=== PATIENT | female | born 1955 | race Caucasian/White ===

== ENCOUNTER 2021-09-30 01:02 | Day surgery (SDC) | payer OTHER, SELFPAY ==
[2021-09-20 09:45] VITALS: BMI 30.1
--- NOTE | 2021-09-29 16:32 | PM.HPGS ---
History of Present Illness History of Present Illness Consent: Risks, benefits, and alternatives have been discussed and questions answered. Patient agrees to proceed with procedure. Chief complaint: hx of colon polyps Narrative: Kathi Solo is a 66 year old female referred for colon cancer screening. She has a history of polyps Review of Systems Review of Systems: All systems reviewed & are unremarkable except as noted in HPI and below PMFSH Past Medical History Medical History Atrial fibrillation HTN (hypertension) Hypercholesterolemia Obesity Social History Social History Smoking status: Never smoker Alcohol intake: current Drinks per week: 7 Alcohol use details: 1 glass of wine daily Substance use: never Substance use type: does not use Living arrangements: with family Spiritual care concerns: No Meds Home Medications and Allergies Home Medications Medication Instructions Recorded Confirmed Type Eliquis 5 mg PO BID 09/20/21 09/20/21 History atorvastatin 40 mg PO DAILY 09/20/21 09/20/21 History isosorbide mononitrate 30 mg PO DAILY 09/20/21 09/20/21 History metoprolol succinate 100 mg PO HS 09/20/21 09/20/21 History pantoprazole 40 mg PO PRN PRN 09/20/21 09/20/21 History Allergies Allergy/AdvReac Type Severity Reaction Status Date / Time No Known Drug Allergies Allergy Unknown Unknown Verified 09/30/21 10:18 Exam Resp: Auscultation: clear to auscultation bilaterally Cardio: Rate: regular rate Rhythm: regular rhythm GI: GI Palp: Yes Soft to palpation and No Tenderness to palpation present (GI) Assessment and Plan Assessment and plan (1) Colon cancer screening: Code(s): Z12.11 - Encounter for screening for malignant neoplasm of colon Status: Acute Assessment and Plan: Colonoscopy with possible biopsy or polypectomy or cautery or injection of substances.
--- NOTE | 2021-09-30 08:34 | P.PNAN_ITS ---
Anes - Initial Pre Proc Eval Procedure: Operation Date: 09/30/21 11:30 Proposed Procedures p Screening Colonoscopy - Saúl Navarro MD Date/Time: 09/30/21 08:34 Surgeon: Saúl Navarro MD Pre Op Diagnosis: hx of colon polyps Patient Data Age: 66 Gender: F Height: 1.6 m Weight: 77.2 kg Allergies Allergy/AdvReac Type Severity Reaction Status Date / Time No Known Drug Allergies Allergy Unknown Unknown Verified 09/30/21 10:18 Home Medications Medication Instructions Recorded Confirmed Type apixaban [Eliquis] 5 mg PO BID 09/20/21 09/20/21 History atorvastatin 40 mg PO DAILY 09/20/21 09/20/21 History isosorbide mononitrate 30 mg PO DAILY 09/20/21 09/20/21 History metoprolol succinate 100 mg PO HS 09/20/21 09/20/21 History pantoprazole 40 mg PO PRN PRN 09/20/21 09/20/21 History Patient hx anesthesia problems: none Family hx anesthesia problems: none Results Review: All pre-operative results and documents have been reviewed as part of the pre-operative evaluation. [facility] Past Medical History Medical History (Updated 09/30/21 @ 08:36 by Jourdan Olsen MD) Atrial fibrillation HTN (hypertension) Hypercholesterolemia Obesity Social History Social History Smoking status: Never smoker Alcohol intake: current Drinks per week: 7 Alcohol use details: 1 glass of wine daily Substance use: never Substance use type: does not use Living arrangements: with family Spiritual care concerns: No Anes - Eval Final PreProcedure Day of Procedure 09/30/21 08:34 Patient weight: overweight Heart: regular rate and rhythm Lungs: clear to auscultation and normal air movement Airway: Mallampati scale class II Neurological: alert and oriented Last oral intake: >/= 8 hours ASA classification: III Emergent: no Anesthetic plan: proceed Anesthesia type and monitoring: general GIVS Results Review: All pre-operative results and documents have been reviewed as part of the pre-operative evaluation. Informed Consent: The patient's anesthetic plan and its attendant risks and benefits were discussed with the patient/family/POA. Questions were solicited and answers provided to the satisfaction of the patient/family/POA.
[2021-09-30 10:20] VITALS: BP 134/75; PULSE 72; RESP 18; TEMP 36.8
[2021-09-30] MEDS: LACTATED RINGERS 1,000 ML 150 ML IV CONT (10:33)
[2021-09-30 11:53] VITALS: BP 112/67; PULSE 68; RESP 70; O2SAT 100
[2021-09-30 12:03] VITALS: BP 110/69; PULSE 67; RESP 24; O2SAT 100
[2021-09-30 12:13] VITALS: BP 132/71; PULSE 65; RESP 19; O2SAT 100
--- NOTE | 2021-10-25 17:23 | WPDSLEEPSTUD ---
Sleep Study Ordering Provider: Súal Navarro MD Interpreting Physician: Lela Bergman MD Sleep Study Type: CPAP Titration Height: 1.6 m Weight: 75.2 kg Body Mass Index: 29.3 [facility] Past Medical History Medical History Atrial fibrillation HTN (hypertension) Hypercholesterolemia Obesity Social History Social History Smoking status: Never smoker Alcohol intake: current Drinks per week: 7 Alcohol use details: 1 glass of wine daily Substance use: never Substance use type: does not use Living arrangements: with family Spiritual care concerns: No Medications Home Medications Medication Instructions Recorded Confirmed Type Eliquis 5 mg PO BID 09/20/21 09/20/21 History atorvastatin 40 mg PO DAILY 09/20/21 09/20/21 History isosorbide mononitrate 30 mg PO DAILY 09/20/21 09/20/21 History metoprolol succinate 100 mg PO HS 09/20/21 09/20/21 History pantoprazole 40 mg PO PRN PRN 09/20/21 09/20/21 History Sleep Procedure This test was performed using the [employer] net multiple channel system including EOG, EEG, submental EMG, EKG, nasal and oral airflow using thermistors and nasal pressure sensors, chest and abdominal belts for body position data, and pulse oximetry. Video monitoring was also performed. The study was scored using [facility] guidelines. The patient was started on CPAP .... EEG Profile EEG was unremarkable, no evidence of seizures. Assessment and Plan Data The data obtained during this sleep study is adequate for interpretation.
== END 2021-09-30 12:23 | disposition home or self-care (01) ==
PROVIDERS: PCP Internal Medicine; Visit Provider Internal Medicine Gastroenterology
PROC: 0DJD8ZZ Inspection of Lower Intestinal Tract, Via Natural or Artificial Opening Endoscopic (ICD-10-PCS; CPT 45378; principal; 2021-09-30 11:30)
DX: Z12.11 Encounter for screening for malignant neoplasm of colon (principal); K57.30 Diverticulosis of large intestine without perforation or abscess without bleeding; K64.8 Other hemorrhoids; Z86.010 Personal history of colon polyps; I48.91 Unspecified atrial fibrillation; I10 Essential (primary) hypertension; Z79.01 Long term (current) use of anticoagulants
CPT/HCPCS: 45378; J2704; J7120

== ENCOUNTER → 2023-07-21 15:34 | Outpatient (CLI) | payer OTHER, SELFPAY ==
--- NOTE | ~2023-07-21 | XR_ITS ---
EXAMINATION: XR chest 2V DATE: 07/21/2023 15:57 INDICATION: Other forms of dyspnea. TECHNIQUE: Frontal and lateral views of the chest were obtained. COMPARISON: None. FINDINGS: There is no pneumonia, pleural effusion, or pneumothorax. The heart size is normal. IMPRESSION: 1. No acute cardiopulmonary disease. Reviewed, dictated and finalized at location E.
== END ==
PROVIDERS: PCP Internal Medicine; Visit Provider Internal Medicine Cardiovascular Disease
DX: R06.09 Other forms of dyspnea (principal)
CPT/HCPCS: 71046

== ENCOUNTER 2023-09-20 00:35 | Day surgery (SDC) | payer OTHER, SELFPAY ==
[2023-09-13 15:04] VITALS: BMI 33.7
--- NOTE | 2023-09-19 10:18 | PM.HPGS ---
History of Present Illness History of Present Illness Consent: Risks, benefits, and alternatives have been discussed and questions answered. Patient agrees to proceed with procedure. Chief complaint: GERD Narrative: Kathi Solo is a 68 year old female with longstanding gastroesophageal reflux symptoms maintained on pantoprazole 40 mg a day. She has had increasing symptoms recently despite therapy. Her last EGD was 10 years ago. A hiatal hernia was apparently found at that time. She gets relief of her heartburn with medication but she has developed a soreness in the upper left side of her chest that is there often throughout the day. She does occasionally regurgitate but only when lying down. She has also developed some hoarseness recently. Review of Systems Review of Systems: All systems reviewed & are unremarkable except as noted in HPI and below PMFSH Past Medical History Medical History Atrial fibrillation HTN (hypertension) Hypercholesterolemia Obesity Social History Social History Smoking status: Never smoker Alcohol intake: current Drinks per week: 10 Alcohol use details: GLASSES WINE Substance use: never Substance use type: does not use Living arrangements: with family Spiritual care concerns: No Meds Home Medications and Allergies Home Medications Medication Instructions Recorded Confirmed Type apixaban 5 mg tablet (Eliquis) 5 mg PO BID 09/20/21 09/20/23 History atorvastatin 40 mg tablet 40 mg PO DAILY 09/20/21 09/20/23 History isosorbide mononitrate 30 mg 30 mg PO HS 09/20/21 09/20/23 History tablet,extended release 24 hr metoprolol succinate 100 mg 100 mg PO HS 09/20/21 09/20/23 History tablet,extended release 24 hr pantoprazole 40 mg tablet,delayed 40 mg PO PRN PRN Heartburn 09/20/21 09/20/23 History release cholecalciferol (vitamin D3) 25 25 mcg PO DAILY 09/13/23 09/20/23 History mcg (1,000 unit) tablet (Vitamin D3) coQ10 (ubiquinol) 100 mg capsule 100 mg PO DAILY 09/13/23 09/20/23 History guaifenesin 400 mg tablet (Mucus 400 mg PO QID PRN Congestion 09/13/23 09/20/23 History Relief) magnesium 250 mg tablet 250 mg PO DAILY 09/13/23 09/20/23 History omega-3 fatty acids-vitamin E 1 cap PO DAILY 09/13/23 09/20/23 History 1,000 mg capsule vitamin B complex 1 cap PO DAILY 09/13/23 09/20/23 History zinc 50 mg capsule 50 mg PO DAILY 09/13/23 09/20/23 History Allergies Allergy/AdvReac Type Severity Reaction Status Date / Time No Known Drug Allergies Allergy Unknown Unknown Verified 09/20/23 07:20 Exam Const: General: alert Orientation/consciousness: patient oriented x3 Resp: Auscultation: clear to auscultation bilaterally Cardio: Rhythm: regular rhythm GI: GI Palp: Yes Soft to palpation and No Tenderness to palpation present (GI) Neuro: General: patient oriented x3 Assessment and Plan Assessment and plan (1) GERD (gastroesophageal reflux disease): Code(s): K21.9 - Gastro-esophageal reflux disease without esophagitis Status: Acute Assessment and Plan: EGD with possible biopsy or dilatation or cautery.
[2023-09-20 07:22] VITALS: BP 132/72; PULSE 71; RESP 16; TEMP 36.1; O2SAT 95
[2023-09-20] MEDS: LACTATED RINGERS 1,000 ML 150 ML IV CONT (07:31)
--- NOTE | 2023-09-20 08:12 | P.PNAN_ITS ---
Anes - Initial Pre Proc Eval Procedure: Operation Date: 09/20/23 08:30 Proposed Procedures p Esophagogastroduodenoscopy - Saúl Navarro MD Date/Time: 09/20/23 08:12 Surgeon: Saúl Navarro MD Pre Op Diagnosis: GERD Patient Data Age: 68 Gender: F Height: 1.6 m Weight: 77 kg Last Vital Signs Temp 96.9 F L 09/20/23 07:22 Pulse 71 09/20/23 07:22 Resp 16 09/20/23 07:22 BP 132/72 09/20/23 07:22 Pulse Ox 95 09/20/23 07:22 O2 Del Method Room Air 09/20/23 07:22 Allergies Allergy/AdvReac Type Severity Reaction Status Date / Time No Known Drug Allergies Allergy Unknown Unknown Verified 09/20/23 07:20 Home Medications Medication Instructions Recorded Confirmed Type apixaban 5 mg tablet (Eliquis) 5 mg PO BID 09/20/21 09/20/23 History atorvastatin 40 mg tablet 40 mg PO DAILY 09/20/21 09/20/23 History isosorbide mononitrate 30 mg 30 mg PO HS 09/20/21 09/20/23 History tablet,extended release 24 hr metoprolol succinate 100 mg 100 mg PO HS 09/20/21 09/20/23 History tablet,extended release 24 hr pantoprazole 40 mg tablet,delayed 40 mg PO PRN PRN Heartburn 09/20/21 09/20/23 History release cholecalciferol (vitamin D3) 25 25 mcg PO DAILY 09/13/23 09/20/23 History mcg (1,000 unit) tablet (Vitamin D3) coQ10 (ubiquinol) 100 mg capsule 100 mg PO DAILY 09/13/23 09/20/23 History guaifenesin 400 mg tablet (Mucus 400 mg PO QID PRN Congestion 09/13/23 09/20/23 History Relief) magnesium 250 mg tablet 250 mg PO DAILY 09/13/23 09/20/23 History omega-3 fatty acids-vitamin E 1 cap PO DAILY 09/13/23 09/20/23 History 1,000 mg capsule vitamin B complex 1 cap PO DAILY 09/13/23 09/20/23 History zinc 50 mg capsule 50 mg PO DAILY 09/13/23 09/20/23 History Patient hx anesthesia problems: none Family hx anesthesia problems: none Results Review: All pre-operative results and documents have been reviewed as part of the pre- operative evaluation. [facility] Past Medical History Medical History Atrial fibrillation HTN (hypertension) Hypercholesterolemia Obesity Social History Social History Smoking status: Never smoker Alcohol intake: current Drinks per week: 10 Alcohol use details: GLASSES WINE Substance use: never Substance use type: does not use Living arrangements: with family Spiritual care concerns: No Anes - Eval Final PreProcedure Day of Procedure 09/20/23 08:12 Patient weight: normal Heart: regular rate and rhythm Lungs: clear to auscultation Neurological: alert and oriented Last oral intake: >/= 8 hours Emergent: no Anesthetic plan: proceed Results Review: All pre-operative results and documents have been reviewed as part of the pre- operative evaluation. Informed Consent: The patient's anesthetic plan and its attendant risks and benefits were discussed with the patient/family/POA. Questions were solicited and answers provided to the satisfaction of the patient/family/POA.
[2023-09-20 08:28] VITALS: BP 114/66; PULSE 65; RESP 16; O2SAT 98
[2023-09-20 08:38] VITALS: BP 119/74; PULSE 67; RESP 16; O2SAT 98
[2023-09-20 08:48] VITALS: BP 119/75; PULSE 63; RESP 15; O2SAT 100
== END 2023-09-20 08:55 | disposition home or self-care (01) ==
PROVIDERS: PCP Internal Medicine; Visit Provider Internal Medicine Gastroenterology
PROC: 0DJ08ZZ Inspection of Upper Intestinal Tract, Via Natural or Artificial Opening Endoscopic (ICD-10-PCS; CPT 43235; principal; 2023-09-20 08:30)
DX: K21.9 Gastro-esophageal reflux disease without esophagitis (principal); K44.9 Diaphragmatic hernia without obstruction or gangrene; I48.91 Unspecified atrial fibrillation; I10 Essential (primary) hypertension; E78.00 Pure hypercholesterolemia, unspecified; E66.9 Obesity, unspecified; Z68.30 Body mass index [BMI] 30.0-30.9, adult; Z79.01 Long term (current) use of anticoagulants
CPT/HCPCS: 43239; 88305; J2001; J2704; J7120

== ENCOUNTER 2023-12-13 09:14 | Outpatient (CLI) | payer OTHER, SELFPAY ==
--- NOTE | 2023-12-14 13:50 | P.PCNPFT_ITS ---
PFT Procedure Performed PFT Procedure Performed Plethysmography (Lung Vol) Diffusing Cap (DLCO) Flow Vol Loop Spirometry w/o Bronchodil PFT Interpretation Lung volumes were measured with the body plethysmography method. Lung volumes are unremarkable. Spirometry showed diminished expiratory flow rates and a d iminished FEV1 to FVC ratio of 49%. No post bronchodilator study carried out. Lung diffusion capacity is mildly reduced at 64% predicted. Flow-volume loop is consistent with obstructive airway disease. Impression: Moderate obstructive airway disease. Mild reduction in lung diffusion capacity.
== END 2023-12-13 09:15 | disposition home or self-care (01) ==
PROVIDERS: PCP Internal Medicine; Visit Provider Internal Medicine Cardiovascular Disease
DX: R06.09 Other forms of dyspnea (principal); R94.2 Abnormal results of pulmonary function studies
CPT/HCPCS: 94375; 94726; 94729

== ENCOUNTER 2024-01-25 09:17 | Outpatient (CLI) | payer OTHER, SELFPAY ==
--- NOTE | 2024-01-25 16:44 | P.PCNPFT_ITS ---
PFT Procedure Performed PFT Procedure Performed Spirometry with Pre/Post Bronchodilator Flow Vol Loop PFT Interpretation This is a pulmonary function test with pre and post-bronchodilator spirometry. The test was performed and results interpreted in accordance with the 2019 and 2005 ATS/ERS Task Force guidelines respectively using the Global Lung Function Initiative-2012 reference equations. Patient demonstrated good effort and cooperation. Reproducibility criteria were met. The quality of the pre bron chodilator spirometry maneuver was Grade A and post bronchodilator spirometry maneuver was Grade A. Of note, patient has not been at her baseline. She had COVID in mid December and then sinus infection and just finished and Augmentin Findings: Spirometry: there is decreased maximal expiratory airflow at all lung volumes with concave expiratory flow tracing. The contour the inspiratory flow tracing is normal. The pre bronchodilator FVC is 2.20 L, 78% predicted. The pre bronchodilator FEV1 is 1.33 L, 61% predicted. The pre bronchodilator FEV1: FVC ratio is 60%. The post bronchodilator FVC is 2.34 L, representing a 6% increase. The post bronchodilator FEV1 is 1.33 L, representing no change. The post bronchodilator FEV1: FVC ratio is 57%. In comparison to previous pulmonary function testing on 12/13/2023 the pre bronchodilator FVC is unchanged from 2.25 L to 2.20 L. The pre bronchodilator FEV1 is increased from 1.10 L to 1.33 L. Impression: There is a moderate obstructive abnormality. There is no significant improvement after inhaling a single dose of albuterol. A concurrent restrictive abnormality cannot be excluded as lung volumes were not measured. In comparison to previous pulmonary function testing on 12/13/2023 there has been a greater than anticipated time dependent increase in the pre bronchodilator FEV1 and no significant change in the pre bronchodilator FVC. Clinical correlation is recommended.
== END 2024-01-25 09:18 | disposition home or self-care (01) ==
PROVIDERS: PCP Internal Medicine; Visit Provider Nurse Practitioner Family
DX: R06.09 Other forms of dyspnea (principal); R94.2 Abnormal results of pulmonary function studies
CPT/HCPCS: 94060

== ENCOUNTER 2024-07-24 08:33 | Outpatient (CLI) | payer MEDICARE, SELFPAY ==
--- NOTE | 2024-08-11 14:46 | WPDSLEEPSTUD ---
Sleep Study Date of Study: 07/24/24 Ordering Provider: Nitish Spain MD Interpreting Physician: Lela Bergman MD Sleep Study Type: Split Polysomnogram Height: 1.6 m Weight: 86.183 kg Body Mass Index: 33.6 Neck Circumference (inches): 15 Grants: 12 Reason for Sleep Study Hypersomnolence Sleep History Kathi Solo is a 59-year-old woman with paroxysmal atrial fibrillation, hypertension, COPD and asthma. She always wakes up feeling tired. She does not awaken from sleep feeling short of breath but she does frequently awaken at night with heartburn, belching, coughing and loud snoring. She frequently has difficulty sleeping which he has a cold. She does not gasp for breath at night. She occasionally sweats excessively loud at night and notices her heart pounding or beating irregularly at night she occasionally falls asleep during the day, occasionally falls asleep involuntarily but never while driving. She does not have loss of muscle tone with strong emotion. She occasionally has daytime difficulties due to excessive sleepiness. She does not feel paralyzed on waking or falling asleep nor does she have vivid dreamlike scenes upon awakening or falling asleep. She does not feel afraid to go to sleep. She does not have nightmares. She rarely remembers her dreams. She occasionally feels sad, depressed or anxious. She rarely notices parts of her body jerking. She rarely kicks at night. She occasionally has crawling and aching feelings in her legs. She rarely has any kind of leg pain at night. She occasionally has morning jaw pain and occasionally grinds her teeth during sleep. She frequently is bothered by pain during the day. She occasionally is awakened by pain at night and occasionally wakes up feeling stiff in the morning she occasionally wakes up with sore achy muscles and pain in the neck and spine. She has memory problems and concentration difficulties. Normal bedtime is between 9 and 10:00 p.m. on weekdays and between 10:00 p.m. and 11:00 p.m. on weekends. She falls asleep within 5 minutes, typically waking once at night to go to the bathroom, and sometimes have some coughing during the night. She is able to return to sleep within 5-10 minutes. Her normal wake time is between 6:00 a.m. and 7:00 a.m. during the week and between 7:00 a.m. and 8:00 a.m. on weekends. She sometimes takes naps in the afternoon or evening. A short nap lasting 10-15 minutes may be refreshing. She is usually drowsy for an hour after waking. She feels better in the afternoon compared to other times of day. Habits: Tobacco: none Caffeine: 3-4 cups per day Alcohol: 2 glasses of wine on average daily Recreational substances: none PMFSH Past Medical History Medical History Atrial fibrillation Gastritis Hiatal hernia HTN (hypertension) Hypercholesterolemia Hyperlipemia Obesity Surgical History Surgical History H/O cardiac catheterization History of cholecystectomy History of hemorrhoidectomy History of tonsillectomy History of total abdominal hysterectomy Previous section x2 Family History Family History Mother Lung cancer Father Myocardial infarction History of heart attack Social History Social History Smoking status: Never smoker Alcohol intake: current Drinks per week: 10 Alcohol use details: GLASSES WINE Substance use: never Substance use type: does not use Living arrangements: with family Spiritual care concerns: No Medications Home Medications Medication Instructions Recorded Confirmed Type apixaban 5 mg tablet (Eliquis) 5 mg PO BID 09/20/21 01/17/24 History atorvastatin 40 mg tablet 40 mg PO DAILY 1
[2024-08-12 17:46] VITALS: BMI 33.6
== END 2024-07-25 07:06 | disposition home or self-care (01) ==
LOC: ANHCSM 08:47
PROVIDERS: PCP Internal Medicine; Visit Provider Internal Medicine Pulmonary Disease
DX: G47.33 Obstructive sleep apnea (adult) (pediatric) (principal); I10 Essential (primary) hypertension; I25.9 Chronic ischemic heart disease, unspecified; Z79.01 Long term (current) use of anticoagulants; Z79.51 Long term (current) use of inhaled steroids; Z79.899 Other long term (current) drug therapy
CPT/HCPCS: 95811

== ENCOUNTER 2025-01-06 00:52 | Day surgery (SDC) | payer MEDICARE, SELFPAY ==
[2024-12-23 08:56] VITALS: BMI 34.0
--- NOTE | 2024-12-30 14:26 | PC.NURSE ---
Spoke with patient regarding medication ELIQUIS. PATIENT verbalizes understanding that the last dose is to be taken on 01/03/2025 and the Endoscopist will instruct them when to restart after the procedure.
--- OUTSIDE RECORDS SUMMARY | 2025-01-06 00:55 | XMS_ITS | Referral Summary ---
Author Organization [facility] [address] [facility] [address] Address [address] [place] [address] Care Team Providers Care Slate Trimmer Name Role Phone Anthony Peng MD Primary Care Provider Encounters Date Type Department Care Team Description 12/18/2024 Orders Only [facility] Cardiology [facility] [facility] [address], [place] [address] Segun Bustillos MD 12/09/2024 8:15 AM TANK TRUCK OPERATOR Office Visit [facility] Cardiology [address] [facility] [address] [place] [address] Segun Bustillos MD Atrial paroxysmal tachycardia (HCC) (Primary Dx); Primary hypertension; Mixed hyperlipidemia; PAF (paroxysmal atrial fibrillation) (CMS/HCC) (HCC); Other chest pain; Palpitations; Atherosclerosis of [place] coronary artery of [place] heart without angina pectoris; Elevated fasting glucose from Last 3 Months Allergies No known active allergies Medications guaiFENesin ER (MUCINEX) 600 mg 12 hr tablet take 1 tablet (600MG) by oral route every 12 hours as needed 0 1 Active nitroglycerin (NITROSTAT) 0.[address] 1 tablet (0.4MG) by sublingual route at the 1st sign of attack; may repeat every 5 min until relief; if pain persists after 3 tablets in 15 min, prompt medical attention is recommended 25 3 1 Active b complex vitamins (VITAMINS B COMPLEX) tablet take 1 tablet by mouth daily 0 0 1 Active omega-3 fatty acids 1,000 mg capsule Take one by mouth one time per day 0 0 9 Active magnesium oxide (MAG-OX) 250 mg (150.8 mg elemental) tabletIndication s:hypomagnesemia 1 tablet (250 mg total) daily Active phenylephrine (SUDAFED PE) 10 mg tabletIndication s:Nasal Congestion Take 1 tablet (10 mg total) by mouth Active cholecalciferol (VITAMIN D-3) 2,000 unit tablet 1 tablet (2,000 Units total) daily Active zinc gluconate 30 mg tablet Take 40 mg by mouth Active atorvastatin (Lipitor) 40 mg tablet Take 1 tablet (40 mg total) by mouth daily 90 tablet 3 4 Active metoprolol XL (TOPROL-XL) 100 mg 24 hr tablet Take 1 tablet (100 mg total) by mouth daily 90 tablet 3 4 Active apixaban (Eliquis) 5 mg tablet Take 1 tablet (5 mg total) by mouth 2 (two) times a day 180 tablet 3 4 Active isosorbide mononitrate ER (IMDUR) 30 mg 24 hr tabletIndication s:Essential (primary) hypertension Take 1 tablet (30 mg total) by mouth daily 90 tablet [address] (Protonix) 40 mg EC tablet Take 1 tablet (40 mg total) by mouth daily 90 tablet 3 4 Active Active Problems Problem Noted Date Diagnosed Date Elevated fasting glucose 12/09/2024 Other thrombophilia 12/04/2023 Other chest pain 11/28/2022 PAF (paroxysmal atrial fibrillation) (CMS/HCC) 0 06/08/2020 Palpitations 09/16/2019 History of abnormal mammogram 10/11/2017 Dyspnea on exertion 09/18/2017 Assessment & Plan (09/17/2018 8:42 AM CDT): Chronic dyspnea on exertion that is unchanged from before. Stress echocardiogram negative in 2015. Patient admits to spurs of dry cough. I advised her to get evaluated by Pulmonary to rule out underlying asthma. Assessment & Plan (09/18/2017 12:50 PM CDT): What she describes sounds chronic and similar to her previous complaints. She had a negative stress test September of 2016. Continue to observe for now. Advised regarding pulmonary evaluation and ear nose throat evaluation as well. BMI 35.0-35.9,adult 09/18/2017 Assessment & Plan (09/18/2017 12:52 PM CDT): Advised about diet modification and regular exercise and keep her weight under control. She admits to me that she eats a lot of unhealthy foods and she will try to change this. Pain in wrist 02/10/2016 Adiposity 02/16/2010 Overview (02/24/2017): obesity Hypertension 02/16/2010 Overview (02/24/2017): hypertension Assessment & Plan (09/17/2018 8:43 AM CDT): Blood pressure is controlled. Continue current treatment Assessment & Plan (09/18/2017 12:51 PM CDT): Blood pressure is controlled. Gastroesophageal reflux disease 02/16/2010 Overview (02/24/2017): esophageal reflux Hyperlipidemia 02/16/2010 Overview (02/24/2017): hyperlipidemia Assessment & Plan (09/17/2018 8:43 AM CDT): Lipid panel control today. Continue statin. Assessment & Plan (09/18/2017 12:51 PM CDT): continue Lipitor. Last lipid panel in May 2017 shows LDL 88, HDL 59 triglyceride 100 Atherosclerosis of coronary artery 02/16/2010 Overview (02/24/2017): coronary artery disease Assessment & Plan (09/17/2018 8:43 AM CDT): 30-50% lad stenosis on catheterization in 2003. No change in symptoms.. Continue aspirin, beta-valente, statin. Stress test - 2015 Assessment & Plan (09/18/2017 12:53 PM CDT): Mild obstructive coronary artery disease in 2004 on catheterization. Continue risk factor modifications for CA D Atrial paroxysmal tachycardia 02/16/2010 Overview (02/24/2017): paroxysmal atrial tachycardia Assessment & Plan (09/17/2018 8:42 AM CDT): In sinus rhythm today. Continue to observe. Continue Toprol. Social History Tobacco Use Types Packs/Day Years Used Date Smoking Tobacco: Never Smokeless Tobacco: Never Tobacco Cessation:Counseling Given: Not Answered Alcohol Use Standard Drinks/Week Comments Yes 0 (1 standard drink = 0.6 oz pur e alcohol) Comments No Sex and Gender Information Value Date Recorded Sex Assigned at Not on file Legal Sex Female 11:56 PM TANK TRUCK OPERATOR Gender Identity Female 10/11/2022 10:09 AM TANK TRUCK OPERATOR Sexual Orientation Straight 10/11/2022 10 :09 AM TANK TRUCK OPERATOR Last Filed Vital Signs Vital Sign Reading Time Taken Comments Blood Pressure 126/72 12/09/2024 8:11 AM TANK TRUCK OPERATOR Pulse 69 12/09/2024 8:11 AM TANK TRUCK OPERATOR Temperature 36.8 C (98.2 F) 07/31/2020 8:12 AM CDT Respiratory Rate 12 09/18/2017 8:21 AM CDT Oxygen Saturation 96% 12/09/2024 8:11 AM TANK TRUCK OPERATOR Inhaled Oxygen Concentration - - Weight 88.3 kg (194 lb 9.6 oz) 12/09/2024 8:11 A M TANK TRUCK OPERATOR Height 161.3 cm (5' 3.5 ) 12/09/2024 8:11 AM TANK TRUCK OPERATOR Body Mass Index 33.93 12/09/2024 8:11 AM TANK TRUCK OPERATOR Plan of Treatment Not on file Procedures Procedure Name Priority Date/Time Associated Diagnosis Comments HEMOGLOBIN A1C Routine 12/18/2024 8:36 AM TANK TRUCK OPERATOR LIPID PANEL Routine 12/18/2024 8:36 AM TANK TRUCK OPERATOR POCT LIPID PANEL Routine 12/09/2024 8:57 AM TANK TRUCK OPERATOR Mixed hyperlipidemia SCREENING MAMMOGRAM BILATERAL W SHASHI Schedule Routine, Read Routine (OP Routine) 05/15/2024 2:10 PM CDT Encounter for screening mammogram for malignant neoplasm of breast DEXA AXIAL SKELETON BONE DENSITY 1 OR MORE SITES Schedule Routine, Read Routine (OP Routine) 05/15/2024 1:52 PM CDT Age-related osteoporosis without current pathological fracture from Last 3 Months or Most Recently Relevant to Health Maintenance Results * (ABNORMAL) Hemoglobin A1c (12/18/2024 8:36 AM TANK TRUCK OPERATOR) Hgb A1C 6.2(H) 4.8 - 5.6 % [facility] - 01 Comment: Prediabetes: 5.7 - 6.4 Diabetes: >6.4 Glycemic control for adults with diabetes: <7.0 12/18/2024 8:36 AM TANK TRUCK OPERATOR 12/18/2024 Narrative [facility] - 12/19/2024 12:06 AM TANK TRUCK OPERATOR Performed at: [address] [place] [id number] Ell Teacher: Omega Fall PhD, Phone: [phone] us Segun Bustillos MD LAB BLOOD ORDERABLES Final Result [facility] - 01 * Lipid panel (12/18/2024 8:36 AM TANK TRUCK OPERATOR) Pathologist [facility] Cholesterol 154 100 - 199 mg/dL [facility] - 01 Triglycerides 64 0 - 149 mg/dL [facility] - 01 HDL Cholesterol 66 >39 mg/dL [facility] - 01 VLDL 13 5 - 40 mg/dL [facility] - 01 LDL, calculated 75 0 - 99 mg/dL [facility] - 01 12/18/2024 8:36 AM TANK TRUCK OPERATOR 12/18/2024 Narrative [facility] - 12/19/2024 2:07 AM TANK TRUCK OPERATOR Performed at: [address] [place] [id number] Ell Teacher: Omega Fall PhD, Phone: [phone] Specimen Comment: A courtesy copy of this report has been sent to [phone], [phone] Specimen Comment: [id number] Segun Bustillos MD LAB BLOOD ORDERABLES Final Result [facility] - 01 * POCT lipid panel (12/09/2024 8:57 AM TANK TRUCK OPERATOR) Cholesterol, POC 163 mg/dL Comment:GLU = 124 HDL, POC N/A mg/dL Triglycerides, POC >650 mg/dL LDL Cholesterol POC N/A mg/dL Chol/HDL Ratio, POC N/A Non-HDL Cholesterol, POC N/A mg/dL Cholesterol Total, POC 163 mg/dL Capillary blood 12/09/2024 8 :57 AM TANK TRUCK OPERATOR Segun Bustillos MD POINT OF CARE TEST O RDERABLES Final Result * Screening Mammogram Bilateral W Shashi (05/15/2024 2:10 PM CDT) Anatomical Region Laterality Modality Breast Bilateral Mammography 05/15/2024 4:45 PM CDT Impressions 05/15/2024 4:45 PM CDT No evidence of malignancy in either breast. FINAL ASSESSMENT: BI-RADS Category 1: Negative. RECOMMENDATION: Recommend return for annual screening mammogram in 12 months. Electronically signed by: Cara Green MD Narrative 05/15/2024 4:45 PM CDT EXAMINATION: BILATERAL SCREENING MAMMOGRAM HISTORY: Annual screening mammography. COMPARISON: Mammography 11/03/2022, 11/03/2021, 10/28/2020 TECHNIQUE: Full-field 2D and digital breast tomosynthesis (DBT) images were obtained. CAD was utilized. BREAST PARENCHYMAL COMPOSITION: There are scattered areas of fibroglandular density. FINDINGS: There is no suspicious mass, calcification, or distortion in either breast. Anthony Peng MD IMG MAMMO PROCEDURES F inal Result * Dexa Axial Skeleton Bone Density 1 or 2 Site (05/15/2024 1:52 PM CDT) Anatomical Region Laterality Modality Body N/A Other 05/15/2024 2:26 PM CDT Impressions 05/15/2024 2:26 PM CDT Osteopenia. Consider follow-up bone densitometry evaluation in 2-3 years. Electronically signed by: Francisco Donovan M.D. Narrative 05/15/2024 2:26 PM CDT EXAMINATION: DEXA AXIAL SKELETON BONE DENSITY 1 OR MORE SITES DATE: 05/15/2024 2:30 PM HISTORY: 68 [id number] postmenopausal woman; age-related osteoporosis without current pathological fracture COMPARISON: None. FINDINGS: The bone densitometry of the L1-L4 region, the left femoral neck and the total hip was calculated using dual-energy x-ray absorptiometry. Bone mineral density (BMD) of the lumbar spine (L1-L4): T-score 0.4 Bone mineral density (BMD) of the femoral neck: T-score 1.8 Bone mineral density (BMD) of the total hip: T-score -1.2 Procedure Note Francisco Donovan MD - 05/15/2024 EXAMINATION: DEXA AXIAL SKELETON BONE DENSITY 1 OR MORE SITES DATE: 05/15/2024 2:30 PM HISTORY: 68 [id number] postmenopausal woman; age-related osteoporosis without current pathological fracture COMPARISON: None. FINDINGS: The bone densitometry of the L1-L4 region, the left femoral neck and the total hip was calculated using dual-energy x-ray absorptiometry. Bone mineral density (BMD) of the lumbar spine (L1-L4): T-score 0.4 Bone mineral density (BMD) of the femoral neck: T-score 1.8 Bone mineral density (BMD) of the total hip: T-score -1.2 IMPRESSION: Osteopenia. Consider follow-up bone densitometry evaluation in 2-3 years. Electronically signed by: Francisco Donovan M.D. us Anthony Peng MD IM DXA PROCEDURES Fin al Result from Last 3 Months or Most Recently Relevant to Health Maintenance Insurance [employer] MEDICARE GOLD MEDICARE FORMERLY [facility] OPEN ACCESS MEDICARE [employer] MEDICARE GOLD Care Teams Slate Trimmer Relationship Specialty Start Date End Date Anthony Peng MD [facility] [place], [place] [id number] PCP - General Internal Medicine 12/27/24
--- OUTSIDE RECORDS SUMMARY | 2025-01-06 00:55 | XMS_ITS | Data Portability ---
Author Organization [facility], Main Office Address [address] [address] [place] [address] Assessment No assessment recorded. Plan of Treatment Reminders Order Date Submit Date Provider Last Modified By Organization Details Last Modified Time Details Appointments None record ed. Lab None record ed. Referral None record ed. Procedures None record ed. Surgeries None record ed. Imaging None record ed. Medication Orders None record ed. Patient TargetsNo targets recorded. Patient Instructions Encounter Date Encounter Id Patient Instructions Last Modified By Organization Details Last Modified Time 07/18/2023 hemorrhoids: car e instructions Not available 07/18/2023 11:13:03 Patient counsele d to F/U immediately if temp. greater than 100.4, if is unable to urinate, increased rectal pain or any other concerns. Not available 07/18/2023 11:10:02 She will f/u wit h me somewhat around 2 - 4 months from now. I want to retreat her RP and LL and treat her RA. We may or may not do another treatment 2 months from then. On today's visit I spent a total of {{30 35 40* 45 50 55 60}} minutes prepping for her visit (reviewing past and shared records), [id number] with her and documenting. Not available 07/18/2023 11:10:44 11/07/2023 Patient counsele d to F/U immediately if temp. greater than 100.4, if is unable to urinate, increased rectal pain or any other concerns. Not available 11/04/2023 14:05:02 She will f/u in about 3 months and I will try to retreat all 3 areas (she might wait until April when she goes on Medicare). We may or may not do another treatment 3 months after that. Not available 01/14/2024 12:50:17 Reason for Referral None Reported. Problems Name Problem SNOMED Code Status Onset Date Resolution Date Notes Provider Name and Address Organization Details Recorded Time External hemorrhoids 04530377 Active 2007 Rin Lindsay MD [facility], [place], [address] 5[facility] 3 11:09:40 Pile easily reducible [id number] Active 2007 2001: Banding x 1 - no help Tx #1: 10/31/08 1.0 x 5 RP Tx #2: 11/07/08 1.0 x 6 RA Tx #3: 11/17/08 1.0 x 5 LL Tx #4: 12/02/08 1.0 x 5 RP Tx #5: 12/19/08 1.0 x 5 RA Tx #6: 11/04/09 1.1 x 6 RP Tx #7: 11/11/09 1.1 x 6 LL Tx #8: 11/17/09 1.0 x 8 RA Tx #9: 09/13/12 1.1 x 8 RA Tx #10: 09/20/12 1.2 x 8 RP and 1.2 x 5 LL Tx #11: 11/14/12 1.1 x 8 RA Tx #12: 04/28/15 1.2 x 10 RA Tx #13: 05/07/15 1.2 x 10 LL Tx #14: 05/13/15 1.2 x 10 RP Tx #15: 06/03/15 1.2 x 8 RA Tx #16: 06/24/15 1.2 x 5 LL and 1.2 x 3 RP Tx #17: 07/18/23 1.2 x 8 RP and 1.2 x 6 LL Tx #18: 11/07/23 1.2 x 4 RP and 1.2 x 10 RA Rin Lindsay MD [facility], [place], [address] 4 12:45:40 Coronary atherosclero sis 975728995 Active 2022 Rin Lindsay MD [address] [place] [address],[address], [address], [facility] [place] 3 11:09:15 Gastroesopha geal reflux disease without esophagitis 737944580 Active 2022 Rin Lindsay MD [address] [place] [address],[address], [place], [address], [facility] [place] 3 11:09:18 Paroxysmal atrial fibrillation 884533635 Active 2022 Rin Lindsay MD [address] [place] [address],[address], [place], [address], [facility] 3 11:09:20 History of polyp of colon 514640911 Active 2022 Rin Lindsay MD [address] [place] [address],[address], [place], [address], [facility] 3 11:09:23 Irritable bowel syndrome with diarrhea 062443112 Active 2022 Rin Lindsay MD [address] [place] [address],[address] [place] [address], [address], [facility] [place] 3 11:09:25 Problem Notes None recorded. Procedures Surgical History Date Name Laterality Status Provider Name and Address Organization Details Recorded Time 11/07/20 IR completed Rin Lindsay MD [address] [place] [address],[address], [place], [address], [facility] 01/14/2024 12:47:38 07/18/20 IR completed Rin Lindsay MD [address] [place] [address],[address], [place], [address], [facility] [place] 07/18/2023 11:01:40 10/20/20 22 Date of [facility] 07/18/2023 10:24:51 11/20/19 22 Colonoscopy completed Rin Lindsay MD [address] [place] [address],[address], [place], [place], [address] [place], [place] [address] [facility] 07/18/2023 10:57:14 11/20/19 06 Colonoscopy completed Rin Lindsay MD [address] [place] [address],[address], [place], [place], [address] [place], [place] [address] [facility] 07/15/2023 11:10:53 11/20/19 05 total abdominal hysterectomy with bilateral salpingo-oophorecto my completed Rin Lindsay MD [address] [place] [address],[address], [place], [place], [address] [place], [place] [address] [facility] 07/18/2023 06:04:11 Cholecystectomy completed Rin Lindsay MD [address] [place] [address],[address], [place], [place], [address] [place] [address] 07/18/2023 06:04:25 Tonsillectomy completed Rin Lindsay MD [address] [place] [address],[address], [address] 07/18/2023 06:04:33 procedure on ankle completed Rin Lindsay MD [address] [place] [address],[address], [place], [address] [place], [place] [address] [facility] 07/18/2023 06:05:00 [facility] 07/18/2023 10:24:14 Ca[facility] 07/18/2023 10:24:28 Imaging Results None recorded. Procedure Notes None recorded. Medical Equipment None Reported. Allergies No known drug allergies Medications Name Sig Start Date Stop Date Status Note LastModified by Organization Details LastModified Time atorvastatin 40 mg tablet TAKE 1 TABLET BY MOUTH ONCE DAILY active Not Available Not Available No t Available isosorbide mononitrate ER 30 mg tablet,extend ed release 24 hr TAKE 1 TABLET BY MOUTH ONCE DAILY active Not Available Not Available No t Available metoprolol succinate ER 100 mg tablet,extend ed release 24 hr TAKE 1 TABLET BY MOUTH ONCE DAILY active Not Available Not Available No t Available pantoprazole 40 mg tablet,delaye d release TAKE 1 TABLET BY MOUTH TWICE DAILY active Not Available Not Available No t Available amoxicillin 875 mg-potassium clavulanate 125 mg tablet TAKE 1 TABLET BY MOUTH EVERY 12 HOURS 01/14 completed Not Available Not Available Not Available magnesium 250 mg (as magnesium oxide) tablet Take by oral route. active Not Available Not Available No t Available Mucus Relief 400 mg tablet Take 1 tablet every 4 hours by oral route. active Not Available Not Available No t Available Vitamin D3 active Not Available Not Av ailable Not Available Eliquis 5 mg tablet TAKE 1 TABLET BY MOUTH TWICE DAILY active Not Available Not Available No t Available Vitals None Recorded Social History Question Answer Notes LastModified by Organizat ion Details LastModified Time Tobacco Smoking Status Never Smoker KWAME GIRARD [facility] [place] 07/18/2023 10:23:23 Do You Have An Advance Directive? Yes [email or web address] Information not available 07/18/2023 Alcohol Use Yes [email or web address] Information not available 07/18/2023 Alcohol Amount Occasional [email or web address] Informati on not available 07/18/2023 Caffeine Use Yes [email or web address] Information not available 07/18/2023 Illicit Drug Use No [email or web address] Information not available 07/18/2023 What Was The Date Of Your Most Recent Tobacco Screening? 11/07/2023 [email or web address] Information not available 11/07/2023 Do You Or Have You Ever Used Any Other Forms Of Tobacco Or Nicotine? No Information not available 07/18/2023 Sex: Unknown Functional Status None recorded. Mental Status None recorded. Family History Relationship Description Onset Age of this Age Resolved Age Notes LastModified by Organization Details LastModified Time Father Malignant tumor of kidney [email or web address] Not available 06/21 10:05:54 Father Hypertensive disorder Not available 06/21 10:06:10 Father Heart disease [email or web address] Not available 06/21 10:06:17 Mother Malignant tumor of lung [email or web address] Not available 06/21 10:06:03 Medical History Condition Response Coronary Artery Disease Y Atrial Fibrillation Y Hernia Y Arthritis/Gout Y Diverticulosis Y Reflux/GERD Y High Cholesterol Y Heart Disease Y Hypertension Y Colon/Rectal Polyps Y Gynecological History Statement/Question Response Number of Pregnancies? 2 Number of C-Sections? 2 Date of Last Mammogram 10/20/2022 Obstetrics History GPAL:G 0 P 0 0 0 0 Past Encounters Encounter ID Performer Location Encounter Start Date Encounter Closed Date Diagnosis/Indication Diagnosis SNOMED-CT Code Diagnosis ICD10 Code Diagnosis Note [id number] Rin Lindsay MD Main Office [address] [facility] [address] [place] [address] 07/18/2023 09:42:20 07/18/2023 10:45:34 Pile easily reducible 058947550 K64.1 Stage 2 - 3 internal hemorrhoid s: She has done well with infrared coagulatio n in the past and I think she would benefit now. I reviewed full informed consent with her including risks/bene fits and alternativ es. She wanted to proceed with treatment. Her 17th overall (1st in this series) treatment (since 10/31/2008 ) was done today on her RP and LL internal hemorrhoid s.She understand s that the Eliquis does increase the (already very low) risk of having bleeding from the treatment. I want her to stay on it unless she gets heavy bleeding, and I discussed the parameters with her. I gave her my cell phone number to call if she has bleeding that she is concerning to her. I advised she can also call the office and leave a message and I will see that if it is after hours or on the weekend (but also call me cell phone). External hemorrhoids 239 [address]7710 K64.4 These will improve with IRC. She understand s the only way to directly treat external hemorrhoid s/skin tags would be with a surgical excision. She does not wish to pursue this and her hemorrhoid s are not bad enough to warrant surgery. She fully understand s she will have significan t tagging no matter what internal treatment she does. She should continue using the moist baby wipes. Irritable bowel syndrome with diarrhea 611792599 K58.0 She of course needs to consistent ly eat a high fiber diet and drink plenty of water. She does fairly well with taking occasional low dose imodium. History of polyp of colon 526107093 Z86.010 I d/w her she needs to find out when her last c-scope was done and, more importantl y, when is she due for another one. Paroxysmal atrial fibrillation 321686500 I48.0 She takes the Eliquis 5 mg BID and follows routinely with her cardiologi st. See above about bleeding from IRC. Gastroesop hageal reflux disease without esophagitis 892583954 K21.9 Her symptoms are controlled with the pantoprazo le. Coronary atherosclerosis 525167046 I25.10 She had 20-50% blockage of the LAD years ago. Recent stress test was negative. She follows routinely with her cardiologi st and is treated with medication s only. Rin Lindsay MD Main Office [address] [facility] [address] [place] [address] 11/07/2023 15:24:12 11/07/2023 15:54:52 Pile easily reducible 614585224 K64.1 Stage 2 - 3 internal hemorrhoid s: She is doing well with IRC. Her 18th overall (2nd in this series) treatment (since 10/31/2008 ) was done today on her RP and RA internal hemorrhoid s.She understand s that the Eliquis does increase the (already very low) risk of having bleeding from the treatment. I want her to stay on it unless she gets heavy bleeding, and I discussed the parameters with her. She confirmed she has my cell phone number to call if she has bleeding that she is concerning to her. I advised she can also call the office and leave a message and I will see that if it is after hours or on the weekend (but also call my cell phone). External hemorrhoids 239 88657 K64.4 These are improving with IRC. She understand s the only way to directly treat external hemorrhoid s/skin tags would be with a surgical excision. She does not wish to pursue this and her hemorrhoid s are not bad enough to warrant surgery. She fully understand s she will have significan t tagging no matter what internal treatment she does. She should continue using the moist baby wipes. Irritable bowel syndrome with diarrhea 674408624 K58.0 She of course needs to consistent ly eat a high fiber diet and drink plenty of water. She does fairly well with taking occasional low dose imodium. History of polyp of colon 541067257 Z86.010 I d/w her she needs to find out when her last c-scope was done and, more importantl y, when is she due for another one. Paroxysmal atrial fibrillation 877336411 I48.0 She takes the Eliquis 5 mg BID and follows routinely with her cardiologi st. See above about bleeding from IRC. Health Concerns Section Related Observation LastModified by Organization Detai ls LastModified Time None Recorded Concern Status LastModified by Organization Details LastModified Time None Recorded Advance Directives Directive Y: Payers Encounter Date Sequence Insurance Name Policy Number Policy Cano Covered Member ID Cano Member ID Guarantor Name 11/07/2023 1 [employer] [facility] [id number] Kathi Solo [id number] Kathi Solo Notes Date Note Type Note Provider Name and Address Organization Details Recorded Time 07/18/2023 text/html See previous vis its. She has been doing great since her last treatment on 06/24/2015. She had no symptoms from her hemorrhoids until about 2 months ago after having an episode of diarrhea for a few days (she has frequently gotten these episodes her entire life). She developed heavy BRB with every BM that lasted for about 4 weeks. She has had no bleeding for the last 2 - 2 1/2 weeks. She still has some discomfort, so she presents today for an evaluation and to have treatment again if it would be helpful. Bleeding: As above. She had dripping of BRB in the water with every BM. She had no leakage of blood in between BM's. Pain: None Itching: None Discharge: It is always hard to get clean after BM's because of swelling and irritation. She uses the moist wipes consistently. She does not have difficulty staying clean - she does not have to re-wipe. She has no drainage. Prolapse: Not that she feels or has to manually reduce. External swelling: She has had fleshy circumferential external skin tagging for years. This has been more swollen and uncomfortable over the last 2 months. Discomfort: She has had some external discomfort. She has internal symptoms of pressure, a sense of being blocked when trying to have a BM and a sense of incomplete emptying after BM's. These have progressively worsened over the last 4 - 5 weeks. Previous Hemorrhoid Treatment: She had 1 banding procedure in 2000. This did not help. She has had the [facility] treatments here starting on 10/31/2008. Previous Lower GI Endoscopy: She has had 2 c-scopes. Her first one in 2005 was negative. She states she had polyps on her 2nd one in about 2020 or 2021. She thinks she is due for a repeat at 5 years but is not certain. I do not have access to her c-scope reports in her shared records. Bowel Habits: She has had long standing somewhat irregular BM's - she tends more to diarrhea. She occasionally takes very low dose imodium. She states she rarely has constipation. She tries to consistently eat a high fiber diet and drink plenty of water but admits she does not always do so. She does take magnesium for general health.Her PMH was reviewed. See forms filled out today. Her EMR was updated. Rin Lindsay MD [address] [place] [address],[address], [place], [address], [facility] 07/18/2023 11:13:05 11/07/2023 text/html She had no probl ems with the last treatment and she is doing well. She was having no bleeding until about 2 weeks ago. She has had 2 - 3 episodes of heavier BRB on the wipe only with a BM and a few other episodes of very light BRB on the wipe. She has had no dripping of blood in the water. She has had no leakage. She has had only minor discomfort on a few occasions. She has remained on her Eliquis.Her BM's have been pretty much daily and soft with just her dietary fiber. She has had to take the imodium only a few times since her last treatment. 07/18/23:See previous visits. She has been doing great since her last treatment on 06/24/2015. She had no symptoms from her hemorrhoids until about 2 months ago after having an episode of diarrhea for a few days (she has frequently gotten these episodes her entire life). She developed heavy BRB with every BM that lasted for about 4 weeks. She has had no bleeding for the last 2 - 2 1/2 weeks. She still has some discomfort, so she presents today for an evaluation and to have treatment again if it would be helpful.Bleeding: As above. She had dripping of BRB in the water with every BM. She had no leakage of blood in between BM's.Pain: NoneItching: NoneDischarge: It is always hard to get clean after BM's because of swelling and irritation. She uses the moist wipes consistently. She does not have difficulty staying clean - she does not have to re-wipe. She has no drainage.Prolapse: Not that she feels or has to manually reduce.External swelling: She has had fleshy circumferential external skin tagging for years. This has been more swollen and uncomfortable over the last 2 months.Discomfort: She has had some external discomfort. She has internal symptoms of pressure, a sense of being blocked when trying to have a BM and a sense of incomplete emptying after BM's. These have progressively worsened over the last 4 - 5 weeks.Previous Hemorrhoid Treatment: She had 1 banding procedure in 2000. This did not help. She has had the [facility] treatments here starting on 10/31/2008.Previous Lower GI Endoscopy: She has had 2 c-scopes. Her first one in 2005 was negative. She states she had polyps on her 2nd one in about 2020 or 2021. She thinks she is due for a repeat at 5 years but is not certain. I do not have access to her c-scope reports in her shared records.Bowel Habits: She has had long standing somewhat irregular BM's - she tends more to diarrhea. She occasionally takes very low dose imodium. She states she rarely has constipation. She tries to consistently eat a high fiber diet and drink plenty of water but admits she does not always do so. She does take magnesium for general health.Her PMH was reviewed. See forms filled out today. Her EMR was updated. Rin Lindsay MD [address] [facility],[address], [place], [address], [facility] 01/14/2024 12:50:47 OBGyn Episode No OBEpisode recorded.
--- OUTSIDE RECORDS SUMMARY | 2025-01-06 00:55 | XMS_ITS | Patient Health Summary ---
Author Organization [facility] [place] Address [address] [place] [address] Care Team Providers Care Diamond Wheel Molder Name Role Phone Anthony Peng MD Primary Care Provider [phone] Note from [facility],non-owned Affiliates and Associated Physician Practices is amultiple site organization consisting of ambulatory clinics and hospital sitesin [place], [place], [place] and [place]. This disclosure is being madepursuant to the Care Everywhere program and may not contain all information available regarding this patient. Last updated 18.[facility] [place] Social History Tobacco Use Types Packs/Day Years Used Date Smoking Tobacco: Never Assessed Sex and Gender Information Value Date Recorded Sex Assigned at Not on file Gender Identity Not on file Sexual Orientation Not on file Procedures * XR WRIST LEFT 3VW OR MORE(Performed 01/28/2010) Performed for Pain in Soft Tissues of Limb * GROSS + MICRO EXAM(Performed 08/17/2005) Results * XR WRIST 3+ VW LEFT (01/28/2010 9:11 AM PREFABRICATOR) Anatomical Region Laterality Modality Wrist / Hand Radiographic Mirta ging 01/28/2010 9:35 AM PREFABRICATOR Narrative 01/28/2010 9:59 AM PREFABRICATOR LEFT WRIST INDICATION: Left wrist pain Examination of the left wrist 3 views reveals slight narrowing of the carpal navicular/multangular joint space. No other apparent recent fracture, dislocation, focal bone production or destruction is noted. SUMMARY LEFT WRIST -- SLIGHT NARROWING OF THE CARPAL NAVICULAR/MULTANGULAR JOINT SPACE, OTHERWISE ESSENTIALLY NEGATIVE. IF SIGNIFICANT SYMPTOMS PERSIST, FOLLOW-UP EXAMINATION TO PERHAPS INCLUDE A BONE SCAN, MAY BE OF VALUE FOR EVIDENCE OF OCCULT OSSEOUS CHANGES. Procedure Note Bon Lakhani MD - 01/28/2010 LEFT WRIST INDICATION: Left wrist pain Examination of the left wrist 3 views reveals slight narrowing of the carpal navicular/multangular joint space. No other apparent recent fracture, dislocation, focal bone production or destruction is noted. SUMMARY LEFT WRIST -- SLIGHT NARROWING OF THE CARPAL NAVICULAR/MULTANGULAR JOINT SPACE, OTHERWISE ESSENTIALLY NEGATIVE. IF SIGNIFICANT SYMPTOMS PERSIST, FOLLOW-UP EXAMINATION TO PERHAPS INCLUDE A BONE SCAN, MAY BE OF VALUE FOR EVIDENCE OF OCCULT OSSEOUS CHANGES. Jonathan Mendez MD DIAGNOSTIC IMAGING O RDERABLES * GROSS + MICRO EXAM (08/17/2005 9:46 AM CDT) Result CASE NUMBER [id number] Comment: ORDERING PHYSICIAN JUSTIN COMER SPECIMEN TYPE Uterus-bilateral oivaries Surgeon DR. JUSTIN COMER Gross Exam Dr. Susan Mendez M.D. Gross Report COPY TO INDICATION FOR PROCEDURE MASS ADNEXAL LEFT OPERATION TOTAL ABDOMINAL HYSTERECTOMY GROSS 1. THE SPECIMEN IS RECEIVED IN ONE CONTAINER LABELED WITH THE PATIENT'S NAME AND UTERUS, BILATERAL OVARIES AND CONSISTS OF A 6 X 4.5 X 3.5 CM UTERINE CORPUS WITH ATTACHED RIGHT AND LEFT OVARIES AND FALLOPIAN TUBES. NO CERVIX IS RECEIVED WITH THE SPECIMEN. THE SPECIMEN WEIGHS 140 GMS. THE SEROSA IS CONGESTED WITH SOME SEROSAL ADHESIONS ON THE POSTERIOR FUNDUS. THE LEFT OVARY MEASURES 1.5 X 1.5 CM. AND THERE IS AN ADJACENT ATTACHED 6 CM IN DIAMETER CYST THAT HAS A SMOOTH EXTERNAL SURFACE. THE LINING IS SMOOTH WITH SCATTERED .1 CM AREAS OF DARK BROWN DISCOLORATION. THE WALL OF THIS CYST IS FIRMLY ADHESED TO THE SURFACE OF THE UTERUS AND THERE IS SOME FIBROTIC INDURATION INTO THE SEROSA OF THE UTERUS. IN THE ADJACENT RESIDUAL OVARIAN STROMA THERE ARE A FEW ADDITIONAL MINUTE TO 1 CM HEMORRHAGIC CYSTS. THE LEFT FALLOPIAN TUBE MEASURES 3.5 CM IN LENGTH AND .5 CM IN DIAMETER. IT IS GROSSLY UNREMARKABLE IN APPEARANCE. THE RIGHT OVARY MEASURES 2.5 X 2.5 X 2 CM. THE EXTERNAL SURFACE IS SMOOTH. THE CUT SURFACE REVEALS MULTIPLE SUBCAPSULAR 0.1 TO 1.0 CM FLUID FILLED AND CORPUS LUTEAL CYST. THE RIGHT FALLOPIAN TUBE MEASURES 2.6 CM IN LENGTH AND .5 CM IN DIAMETER. EXCEPT FOR CLUSTERS OF MINUTE 6 MM FLUID FILLED CYSTS ON THE SURFACE THE TUBE IS GROSSLY NORMAL. THE UTERINE CAVITY OF THE UTERUS MEASURES 2 X 1.5 CM AND IS LINED BY GLISTENING SOFT RED REYNAGA ENDOMETRIUM AND MEASURES .1 CM IN THICKNESS. THE MYOMETRIUM HAS A MAXIMUM THICKNESS OF 2.5 CM. THERE ARE TWO .5 AND .6 CM PINK REYNAGA AND WHITE REYNAGA WELL CIRCUMSCRIBED INTRAMURAL NODULES. THEY HAVE WHORLED CUT SURFACES. ELECTRICIAN SUPERVISOR AIRPLANE SECTIONS ARE SUBMITTED FOLLOWS A. SEROSAL ADHESIONS AND CYSTS IN RELATION TO UTERUS B. CYST AND LEFT OVARY WITH LEFT TUBE INCLUDED C ? D ? E RIGHT TUBE AND OVARY F,G ENDOMYOMETRIUM H POSSIBLE MYOMAS 2. THE SECOND CONTAINER IS LABELED CERVIX AND CONSISTS OF A 2.5 CM IN LENGTH CERVIX, THE ECTOCERVIX MEASURES 3 CM IN DIAMETER. THE EXTERNAL OS IS SLIT LIKE, .3 CM IN LENGTH. ELECTRICIAN SUPERVISOR AIRPLANE SECTIONS ARE SUBMITTED IN 'I AND J'. /JMC *Frozen Section FROZEN SECTION INTERPRETATION [1] UTERUS AND BILATERAL OVARIES -- BENIGN HEMORRHAGIC CYST (GC/JW) GC/CS MICROSCOPIC EXAM MICROSCOPIC SECTION OF THE LEFT OVARIAN CYST SHOW FOCI OF ENDOMETIROSIS WITH FORMATION OF ENDOMETRIOMA. NO MALIGNANCY IS IDENTIFIED. FALLOPIAN TUBE DISPLAYS UNREMARKABLE MORPHOLOGY. THE OVARY SHOWS ALSO HEMORRHAGIC CORPUS LUTEUM. SECTION OF THE RIGHT FALLOPIAN TUBE AND RIGHT OVARY DISPLAY NORMAL MORPHOLOGY. SECTION OF THE CERVIX ARE IN PART SURFACED BY SQUAMOUS NORMALLY MATURING EPITHELIUM AND IN PART BY UNREMARKABLE COLUMNAR EPITHELIUM. ENDOCERVICAL GLANDS SHOW NORMAL MORPHOLOGY. THE ENDOMETRIUM DISPLAYS LATE SECRETORY PATTERN. HYPERPLASIA OR MALIGNANCY IS NOT SEEN. MYOMETRIUM IS ALSO NORMAL. /C DIAGNOSIS DIAGNOSIS [1] UTERUS, TOTAL ABDOMINAL HYSTERECTOMY, BILATERAL SALPINGO OOPHORECTOMY -- CERVIX - NO PATHOLOGIC DIAGNOSIS -- ENDOMETRIUM - SECRETORY PATTERN, LATE -- MYOMETRIUM - NO PATHOLOGIC DIAGNOSIS -- OVARY, LEFT - ENDOMETRIOMA/ENDOMETRIOSIS -- FALLOPIAN TUBE, LEFT - NO PATHOLOGIC DIAGNOSIS -- OVARY, RIGHT - NO PATHOLOGIC DIAGNOSIS -- FALLOPIAN TUBE, RIGHT - NO PATHOLOGIC DIAGNOSIS /[facility] Released By [employer] CPT Code 65873, [id number] MISCELLANEOUS SAMPLES / Unknown 08/17/2005 9:46 AM CDT 08/17/2005 9:47 AM CDT Historical Provider LAB - PATHOLOGY/C YTOLOGY ORDERABLES Care Teams Diamond Wheel Molder Relationship Specialty Start Date End Date Anthony Peng MD [address] [place] [id number] PCP - General 01/28/10
--- OUTSIDE RECORDS SUMMARY | 2025-01-06 00:55 | XMS_ITS | Clinical Summary ---
Author Organization [facility] [address] Address [address] [place] [address] Care Team Providers Care Government Operations Consultant Name Role Phone Anthony Peng MD Primary Care Provider Allergies No known active allergies Medications guaiFENesin [...] chest pain 11/28/2022 PAF (paroxysmal atrial fibrillation) ([facility]) 0 06/08/2020 Palpitations 09/16/2019 History of abnormal [...] CDT): Mild obstructive coronary artery disease in 2003 on catheterization. Continue risk factor modifications for CA D Atrial paroxysmal tachycardia 02/16/2010 Overview (02/24/2017): paroxysmal atrial tachycardia Assessment & Plan (09/17/2018 8:42 AM CDT): In sinus rhythm today. Continue to observe. Continue Toprol. Encounters Date Type Department Care Team Description 12/18/2024 Orders Only [facility] Cardiology [address] [place] [address] [place] [phone] Segun Bustillos MD 12/09/2024 8:15 AM SALES CONSULTANT INSURANCE Office Visit [facility] [address] [place] [address] Segun Bustillos MD Atrial paroxysmal tachycardia (HCC) (Primary Dx); Primary hypertension; Mixed hyperlipidemia; PAF (paroxysmal atrial fibrillation) (CMS/HCC) (HCC); Other chest pain; Palpitations; Atherosclerosis of [place] coronary artery of [place] heart without angina pectoris; Elevated fasting glucose from Last 3 Months Surgical History Surgery Date Site/Laterality Comments TOTAL ABDOMINAL HYSTERECTOMY W/ BILATERAL SALPINGOOPHORECTOMY 11/20/2004 - 11/19/2005 [place] with BSO SECTION c section x2 HEMORRHOID SURGERY Hemorrhoidectomy CHOLECYSTECTOMY Cholecystectomy TONSILLECTOMY Tonsillectomy OTHER SURGICAL HISTORY pin R ankle : R ankle fx OTHER SURGICAL HISTORY 11/20/2009 - 11/19/2010 right foot bunion surgery OTHER SURGICAL HISTORY 11/20/2009 - 11/19/2010 left foot bunion surgery OTHER SURGICAL HISTORY 11/20/2010 - 11/19/2011 R hip bone spur and muscle tear surgery. CARDIAC CATHETERIZATION Medical History Medical History Date Comments Hyperlipidemia hyperlipidemia Adiposity Obesity Gastroesophageal reflux disease GERD Hx Other Medical 2009 Hiatal Hernia g astritis on scope Family History Medical History Relation Name Comments Heart attack Father [place]; Cause of De ath: [place] Lung cancer Mother Cancer, lung; C ause of : Cancer, lung Breast cancer Neg Hx Endometrial cancer Neg Hx Ovarian cancer Neg Hx Thyroid cancer Neg Hx Relation Name Status Comments Father (Age 73) Mother (Age 59) Social History Tobacco Use Types Packs/Day Years Used Date Smoking Tobacco: Never Smokeless Tobacco: Never Tobacco Cessation:Counseling Given: Not Answered Alcohol Use Standard Drinks/Week Comments Yes 0 (1 standard drink = 0.6 oz pur e alcohol) Comments No Sex and Gender Information Value Date Recorded Sex Assigned at Not on file Legal Sex Female 11:56 PM SALES CONSULTANT INSURANCE Gender Identity Female 10/11/2022 10:09 AM SALES CONSULTANT INSURANCE Sexual Orientation Straight 10/11/2022 10 :09 AM SALES CONSULTANT INSURANCE Obstetrics History Para Term AB IAB SAB Ectopic Multiple Livin g Live Births 3 2 2 Date Outcome GA Total Labor Labor/2nd/3rd Weight Sex Type Anes PTL Diane A1 A5 Name Clin Term Term Last Filed Vital Signs Vital Sign Reading Time Taken Comments Blood Pressure 126/72 12/09/2024 8:11 AM SALES CONSULTANT INSURANCE Pulse 69 12/09/2024 8:11 AM SALES CONSULTANT INSURANCE Temperature 36.8 C (98.2 F) 07/31/2020 8:12 AM CDT Respiratory Rate 12 09/18/2017 8:21 AM CDT Oxygen Saturation 96% 12/09/2024 8:11 AM SALES CONSULTANT INSURANCE Inhaled Oxygen Concentration - - Weight 88.3 kg (194 lb 9.6 oz) 12/09/2024 8:11 A M SALES CONSULTANT INSURANCE Height 161.3 cm (5' 3.5 ) 12/09/2024 8:11 AM SALES CONSULTANT INSURANCE Body Mass Index 33.93 12/09/2024 8:11 AM SALES CONSULTANT INSURANCE Plan of Treatment Health Maintenance Due Date Last Done Comments Colon Cancer Screening-Colonoscopy 1955 Depression Screening 1955 Fall Risk Assessment 1955 Hepatitis C Screening 1955 DTaP/Tdap/Td Vaccine (1 - Tdap) 1966 Hepatitis B Screening 1973 Zoster Vaccine (1 of 2) 2005 Pneumococcal vaccine 65+ (1 of 1 - PCV) 2020 Well Visit 65+ 2020 Influenza Vaccine (#1) 2024 9, 08/17/2017, 08/03/2016, Additional history exists Breast Cancer Screening-Mammogram 05/15/2025 05/15/2024, 11/03/2022, 11/03/2021, Additional history exists Osteoporosis Screening-Bone Density Scan 05/15/2026 05/15/2024 Procedures Procedure Name Priority Date/Time Associated Diagnosis Comments HEMOGLOBIN A1C Routine 12/18/2024 8:36 AM SALES CONSULTANT INSURANCE LIPID PANEL Routine 12/18/2024 8:36 AM SALES CONSULTANT INSURANCE POCT LIPID PANEL Routine 12/09/2024 8:57 AM SALES CONSULTANT INSURANCE Mixed hyperlipidemia SCREENING MAMMOGRAM BILATERAL W SHASHI [...] * (ABNORMAL) Hemoglobin A1c (12/18/2024 8:36 AM SALES CONSULTANT INSURANCE) Hgb A1C 6.2(H) 4.8 - 5.6 % [facility] - 01 Comment: Prediabetes: 5.7 - 6.4 Diabetes: >6.4 Glycemic control for adults with diabetes: <7.0 12/18/2024 8:36 AM SALES CONSULTANT INSURANCE 12/18/2024 Narrative [facility] - 12/19/2024 12:06 AM SALES CONSULTANT INSURANCE Performed at: [address] [place] [address] [id number] Patient Services Assistant: Omega Fall PhD, Phone: [phone] us Segun Bustillos MD LAB BLOOD ORDERABLES Final Result [facility] * Lipid panel (12/18/2024 8:36 AM SALES CONSULTANT INSURANCE) Pathologist [facility] Cholesterol 154 100 - 199 mg/dL [facility] - 01 Triglycerides 64 0 - 149 mg/dL [facility] - 01 HDL Cholesterol 66 >39 mg/dL [facility] - 01 VLDL 13 5 - 40 mg/dL [facility] - 01 LDL, calculated 75 0 - 99 mg/dL [facility] - 01 12/18/2024 8:36 AM SALES CONSULTANT INSURANCE 12/18/2024 Narrative [facility] - 12/19/2024 2:07 AM SALES CONSULTANT INSURANCE Performed at: [address] [place] [address] [id number] Patient Services Assistant: Omega Fall PhD, Phone: [phone] Specimen Comment: A courtesy copy of this report has been sent to [phone], [phone] Specimen Comment: [id number] us Segun Bustillos MD LAB BLOOD ORDERABLES Final Result [facility] * POCT lipid panel (12/09/2024 8:57 AM SALES CONSULTANT INSURANCE) Cholesterol, POC 163 mg/dL Comment:GLU = 124 HDL, POC N/A mg/dL Triglycerides, POC >650 mg/dL LDL Cholesterol POC N/A mg/dL Chol/HDL Ratio, POC N/A Non-HDL Cholesterol, POC N/A mg/dL Cholesterol Total, POC 163 mg/dL Capillary blood 12/09/2024 8 :57 AM SALES CONSULTANT INSURANCE us Segun Bustillos MD POINT OF CARE TEST [...] mass, calcification, or distortion in either breast. us Anthony Peng MD IMG MAMMO PROCEDURES F [...] SITES DATE: 05/15/2024 2:30 PM HISTORY: 68 [id number] postmenopausal woman; age-related osteoporosis without current pathological [...] SITES DATE: 05/15/2024 2:30 PM HISTORY: 68 [id number] postmenopausal woman; age-related osteoporosis without current pathological [...] years. Electronically signed by: Francisco Donovan M.D. Anthony Peng MD [facility] DXA PROCEDURES Fin al Result from Last 3 Months or Most Recently Relevant to Health [place] [address] [employer] MEDICARE GOLD MEDICARE [facility] OPEN ACCESS MEDICARE [facility] Address: [facility] [address] [place] [address] A[employer] MEDICARE GOLD Care Teams Government Operations Consultant Relationship Specialty Start Date End Date Anthony Peng MD [facility] [place] [address] PCP - General Internal Medicine 12/27/24
--- OUTSIDE RECORDS SUMMARY | 2025-01-06 00:55 | XMS_ITS | Clinical Summary ---
Author Organization [facility] Address [address] [place] [address] Care Team Providers Care Sonar Watchstander Name Role Phone Anthony Peng MD Primary Care Provider [phone] Source Comments [facility],non-[facility] Affiliates and Associated Physician Practices is amultiple site organization consisting of ambulatory clinics and hospital sitesin [place], [place], [place] and [place]. This disclosure is being madepursuant to the Care Everywhere program and may not contain all information available regarding this patient. Last updated 18.[facility] [employer] Social History Tobacco Use Types Packs/Day Years Used Date Smoking Tobacco: Never Assessed Sex and Gender Information Value Date Recorded Sex Assigned at Not on file Gender Identity Not on file Sexual Orientation Not on file Plan of Treatment Health Maintenance Due Date Last Done Comments BONE DENSITY TESTING 1955 COLOGUARD (AGES 45-75) - COL ON CA SCREENING 1955 COLON MONITORING 1955 COLONOSCOPY - COLON CA SCREENING 1955 CT COLONOGRAPHY - COLON CA SCREENING 1955 Colorectal Cancer Screening 1955 FIT - COLON CA SCREENING 1955 FLEX SIG - COLON CA SCREENING 1955 LIPID TESTING 1955 MAMMOGRAM 1955 HEPATITIS C SCREENING 07/06/1973 DTAP/TDAP/TD VACCINES (1 - Tdap) 1974 PNEUMOCOCCAL VACCINE 50+ (1 of 1 - PCV) 2005 ZOSTER VACCINE (1 of 2) 2005 COVID-19 VACCINE ( - 2023-2 5 season) 2024 INFLUENZA VACCINE (#1) 2024 DEPRESSION SCREENING 11/20/2024 Respiratory Syncytial Virus (RSV) Vaccine Pt: or over 60 yrs (1 - 1-dose 75+ series) 2030 HEPATITIS B VACCINE Aged Out No longe r eligible based on patient's age to complete this topic HIB VACCINE Aged Out No longer eligi ble based on patient's age to complete this topic HPV VACCINE Aged Out No longer eligi ble based on patient's age to complete this topic MENINGOCOCCAL (Group B) VACCINE Aged Out No longer eligible based on patient's age to complete this topic MENINGOCOCCAL VACCINE Aged Out No raphael ruthie eligible based on patient's age to complete this topic Care Teams Sonar Watchstander Relationship Specialty Start Date End Date Anthony Peng MD [address] [place] [address] [address] [place] [address] PCP - General 01/28/10
--- OUTSIDE RECORDS SUMMARY | 2025-01-06 00:55 | XMS_ITS | Referral Summary ---
Author Organization [facility] Address [address] [place] [address] Care Team Providers Care Mobile Equipment Servicer Name Role Phone Anthony Peng MD Primary Care Provider [phone] Source Comments [facility],non-[facility] Affiliates and Associated Physician Practices is amultiple site organization consisting of ambulatory clinics and hospital sitesin [place], [place], [place] and [place]. This disclosure is being madepursuant to the Care Everywhere program and may not contain all information available regarding this patient. Last updated 18.[facility] Social History Tobacco Use Types Packs/Day Years Used Date Smoking Tobacco: Never Assessed Sex and Gender Information Value Date Recorded Sex Assigned at Not on file Gender Identity Not on file Sexual Orientation Not on file Plan of Treatment Not on file Care Teams Mobile Equipment Servicer Relationship Specialty Start Date End Date Anthony Peng MD [address] [place] [address] [address] [place] [address] PCP - General 01/28/10
[2025-01-06 06:54] VITALS: BP 122/64; PULSE 66; RESP 18; TEMP 36.1
[2025-01-06] MEDS: LACTATED RINGERS 1,000 ML 150 ML IV CONT (07:07)
--- NOTE | 2025-01-06 07:28 | P.PNAN_ITS ---
Anes - Initial Pre Proc Eval Procedure: Operation Date: 01/06/25 08:00 Proposed Procedures p Esophagogastroduodenoscopy & Colonoscopy - Neftali Jeter MD [facility] Hemorrhoid Treatment - Neftali Jeter MD Date/Time: 01/06/25 07:28 Surgeon: Neftali Jeter MD Pre Op Diagnosis: GERD,Epigastric pain,hemorrhoids Patient Data Age: 69 Gender: F Height: 1.6 m Weight: 85.5 kg Last Vital Signs Temp 36.1 C L 01/06/25 06:54 Pulse 66 01/06/25 06:54 Resp 18 01/06/25 06:54 BP 122/64 01/06/25 06:54 Allergies Allergy/AdvReac Type Severity Reaction Status Date / Time No Known Drug Allergies Allergy Unknown Unknown Verified 12/25/24 08:41 Home Medications ?Medication ?Instructions ?Recorded ?Confirmed ?Type apixaban 5 mg tablet (Eliquis) 5 mg PO BID 09/20/21 01/06/25 History atorvastatin 40 mg tablet 40 mg PO DAILY 09/20/21 01/06/25 History isosorbide mononitrate 30 mg 30 mg PO HS 09/20/21 01/06/25 History tablet,extended release 24 hr metoprolol succinate 100 mg 100 mg PO HS 09/20/21 01/06/25 History tablet,extended release 24 hr pantoprazole 40 mg tablet,delayed 40 mg PO PRN PRN Heartburn 09/20/21 01/06/25 History release cholecalciferol (vitamin D3) 25 25 mcg PO DAILY 09/13/23 01/06/25 History mcg (1,000 unit) tablet (Vitamin D3) coQ10 (ubiquinol) 100 mg capsule 100 mg PO DAILY 09/13/23 01/06/25 History guaifenesin 400 mg tablet (Mucus 400 mg PO QID PRN Congestion 09/13/23 12/25/24 History Relief) magnesium 250 mg tablet 250 mg PO DAILY 09/13/23 01/06/25 History omega-3 fatty acids-vitamin E 1 cap PO DAILY 09/13/23 01/06/25 History 1,000 mg capsule vitamin B complex 1 cap PO DAILY 09/13/23 01/06/25 History zinc 50 mg capsule 50 mg PO DAILY 09/13/23 01/06/25 History albuterol sulfate 90 mcg/actuation 2 puff inhalation Q4H PRN 04/03/24 12/25/24 Rx aerosol inhaler shortness of breath or wheezing #1 ea hydrocortisone acetate 25 mg 25 mg RECTAL BID #20 ea 11/27/24 12/25/24 Rx rectal suppository (Anusol-HC) fluticasone 250 mcg-salmeterol 50 1 inh inhalation BID #60 ea 12/25/24 01/06/25 Rx mcg/dose blistr powdr for inhalation (Wixela Inhub) Patient hx anesthesia problems: none Family hx anesthesia problems: none Results Review: All pre-operative results and documents have been reviewed as part of the pre- operative evaluation. [facility] Past Medical History Medical History Hyperlipemia Gastritis Hiatal hernia Obesity Hypercholesterolemia HTN (hypertension) Atrial fibrillation Surgical History Surgical History History of total abdominal hysterectomy History of tonsillectomy History of hemorrhoidectomy History of cholecystectomy Previous section x2 H/O cardiac catheterization Family History Family History Mother Lung cancer Father Myocardial infarction History of heart attack Social History Social History Smoking status: Never smoker Alcohol intake: current Drinks per week: 10 Alcohol use details: GLASSES WINE Substance use: never Substance use type: does not use Living arrangements: with family Spiritual care concerns: No Anes - Eval Final PreProcedure Day of Procedure 01/06/25 07:28 Patient weight: normal Heart: regular rate and rhythm Lungs: normal air movement Airway: Mallampati scale class II Neurological: alert and oriented ASA classification: III Emergent: no Anesthetic plan: proceed Anesthesia type and monitoring: general GIVS and standard monitoring Results Review: All pre-operative results and documents have been reviewed as part of the pre-operative evaluation. Informed Consent: The patient's anesthetic plan and its attendant risks and benefits were discussed with the patient/family/POA. Questions were solicited and answers provided to the satisfaction of the patient/family/POA.
--- NOTE | 2025-01-06 07:55 | PM.HPGS ---
History of Present Illness History of Present Illness Consent: Risks, benefits, and alternatives have been discussed and questions answered. Patient agrees to proceed with procedure. Chief complaint: GERD,Epigastric pain,hemorrhoids Narrative: Kathi Solo is a 69 year old female with intermittent luq pain and rectal pain, 2020 colonoscopy with polyp, 2022 egd with gerd Review of Systems Review of Systems: All systems reviewed & are unremarkable except as noted in HPI and below PMFSH Past Medical History Medical History Hyperlipemia Gastritis Hiatal hernia Obesity Hypercholesterolemia HTN (hypertension) Atrial fibrillation Surgical History Surgical History History of total abdominal hysterectomy History of tonsillectomy History of hemorrhoidectomy History of cholecystectomy Previous section x2 H/O cardiac catheterization Family History Family History Mother Lung cancer Father Myocardial infarction History of heart attack Social History Social History Smoking status: Never smoker Alcohol intake: current Drinks per week: 10 Alcohol use details: GLASSES WINE Substance use: never Substance use type: does not use Living arrangements: with family Spiritual care concerns: No Meds Home Medications and Allergies Home Medications ?Medication ?Instructions ?Recorded ?Confirmed ?Type apixaban 5 mg tablet (Eliquis) 5 mg PO BID 09/20/21 01/06/25 History atorvastatin 40 mg tablet 40 mg PO DAILY 09/20/21 01/06/25 History isosorbide mononitrate 30 mg 30 mg PO HS 09/20/21 01/06/25 History tablet,extended release 24 hr metoprolol succinate 100 mg 100 mg PO HS 09/20/21 01/06/25 History tablet,extended release 24 hr pantoprazole 40 mg tablet,delayed 40 mg PO PRN PRN Heartburn 09/20/21 01/06/25 History release cholecalciferol (vitamin D3) 25 25 mcg PO DAILY 09/13/23 01/06/25 History mcg (1,000 unit) tablet (Vitamin D3) coQ10 (ubiquinol) 100 mg capsule 100 mg PO DAILY 09/13/23 01/06/25 History guaifenesin 400 mg tablet (Mucus 400 mg PO QID PRN Congestion 09/13/23 12/25/24 History Relief) magnesium 250 mg tablet 250 mg PO DAILY 09/13/23 01/06/25 History omega-3 fatty acids-vitamin E 1 cap PO DAILY 09/13/23 01/06/25 History 1,000 mg capsule vitamin B complex 1 cap PO DAILY 09/13/23 01/06/25 History zinc 50 mg capsule 50 mg PO DAILY 09/13/23 01/06/25 History albuterol sulfate 90 mcg/actuation 2 puff inhalation Q4H PRN 04/03/24 12/25/24 Rx aerosol inhaler shortness of breath or wheezing #1 ea hydrocortisone acetate 25 mg 25 mg RECTAL BID #20 ea 11/27/24 12/25/24 Rx rectal suppository (Anusol-HC) fluticasone 250 mcg-salmeterol 50 1 inh inhalation BID #60 ea 12/25/24 01/06/25 Rx mcg/dose blistr powdr for inhalation (Wixela Inhub) Allergies Allergy/AdvReac Type Severity Reaction Status Date / Time No Known Drug Allergies Allergy Unknown Unknown Verified 12/25/24 08:41 Vital Signs Vital Signs - 24 hr 01/06/25 06:54 Temperature 97 F L Pulse Rate 66 Respiratory Rate 18 Blood Pressure 122/64 Exam Const: General: comfortable and no acute distress HENMT: Face/Nose/Sinus: Normal nares present Eyes: General: appearance normal, both eyes and all related structures Neck: Neck: no JVD Resp: Auscultation: clear to auscultation bilaterally Cardio: Rate: regular rate Rhythm: regular rhythm GI: Inspection: non-distended GI Palp: Yes Soft to palpation Skin: General skin exam: normal color Neuro: General: gait normal Speech: normal speech Extrem: General: normal to inspection Psych: Mental Status: mental status grossly normal Assessment and Plan Assessment and plan (1) GERD (gastroesophageal reflux disease): Code(s): K21.9 - Gastro-esophageal reflux disease without esophagitis Status: Acute Assessment and Plan: egd (2) Left flank pain: Code(s): R10.9 - Unspecified abdominal pain Status: Acute (3) Rectal bleeding: Code(s): K62.5 - Hemorrhage of anus and rectum Status: Acute Assessment and Plan: colonoscopy will assess if needs irc (only if internal hemorrhoids)
--- NOTE | 2025-01-06 08:13 | SUR.OPER ---
EGD start 805 end 809, Colonoscopy start 813.
[2025-01-06 08:28] VITALS: BP 116/66; PULSE 69; RESP 17; O2SAT 100
--- NOTE | 2025-01-06 08:28 | W.PM.PROC2 ---
Procedure Note - Detailed Date of Procedure 01/06/25 Pre-op Diagnosis hemorrhoids Post-op Diagnosis Same Procedure Performed irc on internal hemorrhoids Surgeon Neftali Jeter MD Anesthesia MAC (also had colonoscopy) Findings grade II internal hemorrhoids and skin tags in anus Description of Procedure rectal exam without lesion or fissure, no bleeding. Used anoscope and noted grade II internal hemorrhoids then advanced IRC probe and hemorrhoids treated for 1.5 seconds x6
[2025-01-06 08:38] VITALS: BP 121/64; PULSE 65; RESP 18; O2SAT 97
[2025-01-06 08:48] VITALS: BP 134/66; PULSE 67; RESP 18; O2SAT 97
== END 2025-01-06 08:58 | disposition home or self-care (01) ==
PROVIDERS: PCP Internal Medicine; Referring Provider Nurse Practitioner; Visit Provider Internal Medicine Gastroenterology
PROC: 0DJ08ZZ Inspection of Upper Intestinal Tract, Via Natural or Artificial Opening Endoscopic (ICD-10-PCS; CPT 45378; principal; 2025-01-06 08:00)
PROC: (CPT 46930; 2025-01-06 08:00)
DX: K21.9 Gastro-esophageal reflux disease without esophagitis (principal); K29.70 Gastritis, unspecified, without bleeding; K64.1 Second degree hemorrhoids; K57.30 Diverticulosis of large intestine without perforation or abscess without bleeding; K64.4 Residual hemorrhoidal skin tags; Z86.0100 Personal history of colon polyps, unspecified
CPT/HCPCS: 43239; 45378; 46930; 88305; J2003; J2704; J7120

== ENCOUNTER 2025-07-08 09:03 | Outpatient (CLI) | payer MEDICARE, SELFPAY ==
--- NOTE | ~2025-07-08 | US_ITS ---
US art doppler w press LE BI INDICATION: Peripheral vascular disease TECHNIQUE: Segmental pressures and plethysmographic and Doppler waveforms of the brachial and lower extremity arteries were obtained. COMPARISON: None. FINDINGS: Right and left brachial artery pressures of 155 mm Hg and 172 mm Hg, respectively, are concordant (normal difference <= 30 mmHg). There is biphasic flow bilaterally. The right ankle-brachial index (LUZ MARINA) is 0.97 (normal >= 0.9-1.0). The right great toe-brachial index (TBI) is 0.79 (normal >= 0.60). The left LUZ MARINA is 0.96. The left TBI is 0.56. IMPRESSION: 1. Normal ankle-brachial indices. 2: Mildly decreased left toe brachial index consistent with peripheral arterial disease. Reviewed, dictated and finalized at location A.
--- OUTSIDE RECORDS SUMMARY | 2025-07-08 09:26 | XMS_ITS | Encounter Summary ---
Author Organization [facility] Healthcare Address [address] [place] [address] Care Team Providers Care Ophthalmic Technologist Name Role Phone Anthony Peng MD Primary Care Provider Anthony Peng MD Primary Care Provider Encounter Details Date Type Department Care Team (Late st Contact Info) Description 12/25/2024 Orders Only [facility] [place] Information Management [address] [place] [id number] Scanning, Provider Social History Tobacco Use Types Packs/Day Years Used Date Smoking Tobacco: Never Smokeless Tobacco: Never Alcohol Use Standard Drinks/Week Comments Yes 0 (1 standard drink = 0.6 oz pur e alcohol) Comments No Sex and Gender Information Value Date Recorded Sex Assigned at Not on file 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 Gender Identity Female 10/11/2022 10:09 AM MACHINE TOOL BUILDER Sexual Orientation Straight 10/11/2022 10 :09 AM MACHINE TOOL BUILDER documented as of this encounter Plan of Treatment Not on file documented as of this encounter Procedures Procedure Name Priority Date/Time Associated Diagnosis Comments SCAN - LABS 12/25/2024 documented in this encounter Results * SCAN - LABS (12/25/2024) us Provider Scanning Final Result documented in this encounter Visit Diagnoses Not on filedocumented in this encounter Care Teams Ophthalmic Technologist Relationship Specialty Start Date End Date Anthony Peng MD PCP - General 07/27/12 12/26/24 Anthony Peng MD [facility] [place] [address] PCP - General Internal Medicine 12/27/24 documented as of this encounter
--- OUTSIDE RECORDS SUMMARY | 2025-07-08 09:26 | XMS_ITS | Clinical Summary ---
Author Organization [facility] Address [address] [place] [address] Care Team Providers Care Senior Project Manager Name Role Phone Anthony Peng MD Primary Care Provider [phone] Source Comments [facility] Affiliates and Associated Physician Practices is amultiple site organization consisting of ambulatory clinics and hospital sitesin [place], [place], [place] and [place]. This disclosure is being madepursuant to the Care Everywhere program and may not contain all information available regarding this patient. 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 Gender Identity Not on file Sexual Orientation [...] VACCINE (1 of 2) 2005 COVID-19 VACCINE (1 - 2023-2 5 season) 2024 DEPRESSION SCREENING 11/20/2024 MEDICARE AWV CALENDAR YEAR 2024 INFLUENZA VACCINE (#1) 2025 Respiratory Syncytial Virus (RSV) Vaccine Pt: or [...] to complete this topic MENINGOCOCCAL (Group B) VACC INE SHARED DECISION-MAKING Aged Out No longer eligibl e based on patient's age to complete this topic MENINGOCOCCAL GROUPS A/C/Y/W VACCINE Aged Out No longer eligible b ased on patient's age to complete this topic Insurance [employer] MEDICARE ADV SELF PAY NO INSURANCE Member Subscriber Plan / Payer (Ef fective for All Dates) Name:Kathi Amato Member ID:Not on file Relation to Subscriber:Not on file Name:KATHI AMATO Subscriber ID:Not on file (Home) [facility] [facility] [place] [address] Payer ID:Not on file Group ID:Not on file Type:Self Pay Address: [place], [place] [facility] Address: [facility] [id number] [place] [phone] Care Teams Senior Project Manager Relationship Specialty Start Date End Date Anthony Peng MD [address] [place] [address] [address] [place] [address] PCP - General 01/28/10
--- OUTSIDE RECORDS SUMMARY | 2025-07-08 09:26 | XMS_ITS | Clinical Summary ---
Author Organization [facility] [address] Address [address] [place] [address] Care Team Providers Care Data Typist Name Role Phone Anthony Peng MD Primary [...] tablet Take 40 mg by mouth Active pantoprazole DR (Protonix) 40 mg EC tablet Take 1 tablet (40 mg total) by mouth daily 90 tablet 3 4 Active atorvastatin (LIPITOR) 40 mg tablet Take 1 tablet by mouth once daily 90 tablet 3 5 Active metoprolol XL (TOPROL-XL) 100 mg 24 hr tablet Take 1 tablet by mouth once daily 90 tablet 3 5 Active isosorbide mononitrate ER (IMDUR) 30 mg 24 hr tabletIndication s:Essential (primary) hypertension Take 1 tablet by mouth once daily 90 tablet 3 5 Active apixaban (Eliquis) 5 mg tablet Take 1 tablet by mouth twice daily 180 tablet 2 5 Active Active Problems Problem Noted Date Diagnosed Date Elevated fasting glucose 12/09/2024 Other thrombophilia 12/04/2023 Other chest pain 11/28/2022 PAF (paroxysmal atrial fibrillation) 06/08/2020 Palpitations 09/16/2019 History of abnormal mammogram [...] rhythm today. Continue to observe. Continue Toprol. Surgical History Surgery Date Site/Laterality Comments TOTAL [...] History Relation Name Comments Heart attack Father ID; Cause of De ath: ID Lung cancer Mother Cancer, lung; C ause [...] on file Legal Sex Female 11:56 PM CEO Gender Identity Female 10/11/2022 10:09 AM CEO Sexual Orientation Straight 10/11/2022 10 :09 AM CEO Obstetrics History Para Term AB IAB SAB Ectopic Multiple Livin g Live Births 3 2 2 Date Outcome GA Total Labor Labor/2nd/3rd Weight Sex Type Anes PTL Diane A1 A5 Name Clin Term Term Last Filed Vital Signs Vital Sign Reading Time Taken Comments Blood Pressure 126/72 12/09/2024 8:11 AM CEO Pulse 69 12/09/2024 8:11 AM CEO Temperature 36.8 C (98.2 F) 07/31/2020 8:12 AM CDT Respiratory Rate 12 09/18/2017 8:21 AM CDT Oxygen Saturation 96% 12/09/2024 8:11 AM CEO Inhaled Oxygen Concentration - - Weight 88.3 kg (194 lb 9.6 oz) 12/09/2024 8:11 A M CEO Height 161.3 cm (5' 3.5) 12/09/2024 8:11 AM CEO Body Mass Index 33.93 12/09/2024 8:11 AM CEO Plan of Treatment Health Maintenance Due Date Last Done Comments Colon Cancer Screening-Colonoscopy 1955 Depression Screening 1955 Fall Risk Assessment 1955 Hepatitis C Screening 1955 DTaP/Tdap/Td Vaccine (1 - Tdap) 1966 Hepatitis B Screening 1973 Pneumococcal vaccine 65+ (1 of 1 - PCV) 2005 Zoster Vaccine (1 of 2) 2005 Well Visit 65+ 2020 Breast Cancer Screening-Mammogram 05/15/2025 05/15/2024, 11/03/2022, 11/03/2021, Additional history exists Influenza Vaccine (#1) 2025 9, 08/17/2017, 08/03/2016, Additional history exists Osteoporosis Screening-Bone Density Scan 05/15/2026 05/15/2024 Procedures Procedure Name Priority Date/Time Associated Diagnosis Comments SCREENING MAMMOGRAM BILATERAL W SHASHI Schedule Routine, Read Routine (OP Routine) 05/15/2024 2:10 PM CDT Encounter for screening mammogram for malignant neoplasm of breast DEXA AXIAL SKELETON BONE DENSITY 1 OR MORE SITES Schedule Routine, Read Routine (OP Routine) 05/15/2024 1:52 PM CDT Age-related osteoporosis without current pathological fracture from Last 3 Months or Most Recently Relevant to Health Maintenance Results * Screening Mammogram Bilateral W Shashi (05/15/2024 [...] distortion in either breast. Anthony Peng MD [facility] [place] F inal Result * Dexa [...] SITES DATE: 05/15/2024 2:30 PM HISTORY: 68 [id number] postmenopausal woman; age-related osteoporosis without current pathological [...] SITES DATE: 05/15/2024 2:30 PM HISTORY: 68 [id number] postmenopausal woman; age-related osteoporosis without current pathological [...] by: Francisco Donovan M.D. Anthony Peng MD IMG DXA PROCEDURES Fin al Result from Last 3 Months or Most Recently Relevant to Health Maintenance Insurance A[employer] MEDICARE GOLD MEDICARE [facility] OPEN ACCESS MEDICARE AET[employer] MEDICARE GOLD Care Teams Data Typist Relationship Specialty Start Date End Date Anthony Peng MD [facility] [place] [address] PCP - General Internal Medicine 12/27/24
== END 2025-07-08 09:04 | disposition home or self-care (01) ==
PROVIDERS: PCP Internal Medicine; Visit Provider Internal Medicine
DX: I73.9 Peripheral vascular disease, unspecified (principal)
CPT/HCPCS: 93923

== ENCOUNTER 2025-10-10 07:51 | Outpatient (CLI) | payer MEDICARE, SELFPAY ==
--- NOTE | ~2025-10-10 | MR_ITS ---
EXAMINATION: MR knee RT wo con DATE: 10/10/2025 08:32 INDICATION: Knee pain TECHNIQUE: Magnetic resonance imaging (MRI) of the knee was performed without intravenous contrast. Sequences included axial PD-weighted FS FSE, coronal PD- weighted FSE and PD-weighted FS FSE, sagittal PD-weighted FSE, and sagittal T2- weighted FS FSE. COMPARISON: None. FINDINGS: No fracture subluxation or dislocation. Moderately severe osteoarthritic degenerative changes present with scattered areas of cartilaginous erosion, spur formation and early developing subchondral cystic changes. Trace joint effusion. Degenerative changes slightly more pronounced along the lateral aspect. Horizontal tear involving the anterior horn of lateral meniscus extending to the inferior surface can be seen on images 8 through 10 of series 7. No tear in the posterior horn of the lateral meniscus or the medial meniscus. Cruciate ligaments and collateral ligaments appear intact. Capsular fullness with mild cystic appearing changes along the posterior medial along the posterolateral margin of the superior aspect adjacent to the distal femur seen on image 12 series 8 has chronic appearance. Small Patel's cyst noted. Extra articular soft tissues including quadriceps and infrapatellar tendons appear normal. IMPRESSION: 1. Horizontal tear involving the anterior horn of the lateral meniscus with trace joint effusion. 2. Moderately severe osteoarthritic degenerative changes most advanced in the lateral compartment. 3. Mildly complex cystic changes along the posterior superolateral capsular region likely associated with chronic inflammation or possibly old injury. Reviewed, dictated and finalized at location A. O OFFICER IMPRESSION: 1. Horizontal tear involving the anterior horn of the lateral meniscus with tra ce joint effusion. 2. Moderately severe osteoarthritic degenerative changes most advanced in the l ateral compartment. 3. Mildly complex cystic changes along the posterior superolateral capsular reg ion likely associated with chronic inflammation or possibly old injury.
== END 2025-10-10 07:52 | disposition home or self-care (01) ==
LOC: MICIMG 07:53
PROVIDERS: PCP Internal Medicine; Visit Provider Orthopaedic Surgery
DX: M17.11 Unilateral primary osteoarthritis, right knee (principal); S83.281A Other tear of lateral meniscus, current injury, right knee, initial encounter; X58.XXXA Exposure to other specified factors, initial encounter; M23.051 Cystic meniscus, posterior horn of lateral meniscus, right knee; M22.41 Chondromalacia patellae, right knee; M22.42 Chondromalacia patellae, left knee
CPT/HCPCS: 73721